=== PATIENT | female | born 1980 | race Caucasian/White ===

== ENCOUNTER → 2016-12-02 | Outpatient (CLI) | payer BC ==
--- NOTE | 2016-12-05 09:18 | MM ---
Reason for exam: screening (asymptomatic). Last mammogram was performed 2 years and 10 months ago. History: Family history of breast cancer in grandmother at age 70. Physical Findings: A clinical breast exam by your physician is recommended on an annual basis and results should be correlated with mammographic findings. MG Screening Mammo w CAD Bilateral CC and MLO view(s) were taken. Prior study comparison: February 06, 2014, left diagnostic mammogram w/CAD. June 21, 2012, CAD bilateral diagnostic mammogram. The breast tissue is heterogeneously dense. This may lower the sensitivity of mammography. There is no discrete abnormality. No significant changes when compared with prior studies. ASSESSMENT: Negative, BI-RAD 1 RECOMMENDATION: Routine screening mammogram of both breasts at age 41.
== END | disposition home or self-care (01) ==
LOC: RADMAMWWP 13:37
PROVIDERS: ATTEND Obstetrics & Gynecology
DX: Z12.31 Encounter for screening mammogram for malignant neoplasm of breast (principal)

== ENCOUNTER 2019-01-31 12:20 | Day surgery (SDC) | payer BC ==
[2019-01-25 10:00] VITALS: BMI 24.9
--- NOTE | 2019-01-31 08:06 | P.GSHP ---
History of Present Illness H&P Date: 01/31/19 CHIEF COMPLAINT: Inguinal hernia, right. HISTORY OF PRESENT ILLNESS: The patient is a 38-year-old female who presents with a history of swelling and pain along the right groin. She's noted increased swelling including pain of the area. Now she presents for repair of her inguinal hernia. PAST MEDICAL HISTORY: Please see list. PAST SURGICAL HISTORY: Please see list. MEDICATIONS: Please see list. ALLERGIES: Please see list. SOCIAL HISTORY: No illicit drug use FAMILY HISTORY: No reports of Crohn disease or ulcerative colitis. REVIEW OF ORGAN SYSTEMS: CONSTITUTIONAL: No reports of fevers or chills. No reports of weight loss despite prior attempts. GI: Denies any blood in stools or constipation. PHYSICAL EXAM: VITAL SIGNS: Stable GENERAL: Well-developed pleasant female in no acute distress. HEENT: No scleral icterus. Extraocular movements grossly intact. Moist buccal mucosa. NECK: Supple without lymphadenopathy. CHEST: Unlabored respirations. Equal bilateral excursions. CARDIOVASCULAR: Regular rate and rhythm. Distal 2+ pulses. ABDOMEN: Soft, nondistended. No peritoneal signs. Palpable defect of the right groin. MUSCULOSKELETAL: No clubbing, cyanosis, or edema. ASSESSMENT: 1. Inguinal hernia, right initial and symptomatic. PLAN: 1. Recommend proceeding with a diagnostic laparoscopy with inguinal repair with mesh with possible bilateral approach. 2. Benefits and risks of surgical intervention was discussed including possibility of open technique. 3. May need overnight observation pending anticipated postoperative pain. 4. DVT prophylaxis. 5. Antibiotic prophylaxis. Past Medical History Past Medical History: No Reported History Additional Past Medical History / Comment(s): RIGHT INGUINAL HERNIA History of Any Multi-Drug Resistant Organisms: None Reported Past Surgical History: Appendectomy, Cholecystectomy, Tonsillectomy Past Anesthesia/Blood Transfusion Reactions: Postoperative Nausea & Vomiting (PONV) Smoking Status: Never smoker - Past Family History Mother Family Medical History: No Reported History Medications and Allergies Home Medications Medication Instructions Recorded Confirmed Type ALPRAZolam [Xanax] 0.25 mg PO BID PRN 01/25/19 01/25/19 History Desvenlafaxine Succinate [Pristiq] 100 mg PO QAM 01/25/19 01/25/19 History Allergies Allergy/AdvReac Type Severity Reaction Status Date / Time No Known Allergies Allergy Verified 01/25/19 09:55
[~2019-01-31 12:20] MED LIST: DEXAMETHASONE SOD PHOSPHATE 10 MG/ML 1 ML VIAL IV ONE; HEPARIN SODIUM,PORCINE 5,000 UNIT/ML 1 ML VIAL SQ ONE; HYDROmorphone 0.5 MG/0.5 ML SYRINGE IVP PRN; LACTATED RINGERS 1,000 ML IV SCH; LIDOCAINE 1% 20 ML VIAL (10MG/ML) FOR IV START INTRADERMA PRN; MIDAZOLAM 2 MG/2 ML VIAL IV PRN; SCOPOLAMINE 1.5MG/72HR PATCH TRANSDERM ONE; ceFAZolin IN SWFI 2 GM/20 ML SYRINGE IVP ONE
[2019-01-31] MEDS: ONDANSETRON 4 MG/2 ML VIAL IVP ONE ×2 (14:11→16:30)
[2019-01-31] MEDS ORDERED: PROPOFOL 10 MG/ML 20 ML VIAL IV ONE (15:12)
[2019-01-31] MEDS ORDERED: PHENYLEPHRINE-0.9% NACL SYG 1 MG/10 ML SYRINGE ONE (15:12)
[2019-01-31] MEDS ORDERED: NEOSTIGMINE 1 MG/ML 10 ML VIAL ONE (15:12)
[2019-01-31] MEDS ORDERED: GLYCOPYRROLATE 0.2 MG/ML 2 ML VIAL ONE (15:12)
[2019-01-31] MEDS ORDERED: MIDAZOLAM 2 MG/2 ML VIAL ONE (15:12)
[2019-01-31] MEDS ORDERED: fentaNYL (PF) 50 MCG/ML 2 ML AMP ONE (15:12)
[2019-01-31] MEDS ORDERED: ROCURONIUM BROMIDE 10 MG/ML 10 ML VIAL IV ONE (15:12)
[2019-01-31] MEDS ORDERED: LIDOCAINE 1% INJ 10MG/ML (20 ML MDV) ONE (15:12)
[2019-01-31] MEDS ORDERED: BUPIVACAINE-EPI 0.5%-1:200,000 10 ML VIAL SQ ONE (15:47)
[2019-01-31] MEDS ORDERED: LACTATED RINGERS 1,000 ML IV ONE (16:14)
[2019-01-31 16:34] VITALS: TEMP 99.6
[2019-01-31] MEDS: MEPERIDINE 50 MG/ML SYRINGE IVP ONE ×4 (16:38→17:00)
[2019-01-31] MEDS: diphenhydrAMINE 50 MG/ML 1 ML VIAL IVP ONE ×2 (16:40→17:00)
[2019-01-31 16:44] VITALS: RESP 16
--- NOTE | 2019-01-31 16:59 | P.OP ---
Date of Procedure: 01/31/19 Description of Procedure: SURGEON: ESTEPHANIE BRODERICK MD PREOPERATIVE DIAGNOSES: 1. Right lower quadrant pain 2. Prior history of appendectomy 3. History right inguinal hernia 4. Lower abdominal pain 5. Generalized anxiety disorder 6. Depressive disorder, chronic POSTOPERATIVE DIAGNOSES: 1. Right lower quadrant pain 2. Prior history of appendectomy 3. History right inguinal hernia 4. Lower abdominal pain 5. Generalized anxiety disorder 6. Depressive disorder, chronic 7. Peritoneal adhesions, right lower quadrant pain OPERATION: 1. Robotic-assisted da Khoi Xi laparoscopic lysis of adhesions 2. Robotic-assisted da Khoi Xi laparoscopic reduction of sigmoid volvulus COMPLICATIONS: None. Anesthesia: GETA, local Estimated Blood Loss (ml): 5 Pathology: none sent Condition: stable Disposition: floor Operative Findings: 1. No bilateral inguinal hernia or defect 2. Moderate peritoneal adhesions along right lower quadrant with lead point to right groin 3. Highly redundant sigmoid colon with active sigmoid volvulus reduced 4. Bilateral ovaries unremarkable 5. Fallopian tubes right unremarkable with dilated veins of the left fallopian otherwise within normal limits. 6. No findings of endometrial deposits along colon, small bowel, ovaries, fallopian tube, uterus, pouch of Albert, and bladder INDICATIONS: The patient is a 38-year-old female who presents with lower abdominal pain, right greater than left. She reports possible history of right inguinal hernia. Surgical intervention of diagnostic laparoscopy with right inguinal hernia repair with mesh was described. Informed consent was obtained. Robotic assisted laparoscopic approach was described. Benefits and risks of the procedure including but not limited to bleeding, infection, injury to the small bowel was described. Informed consent was obtained. DESCRIPTION OF PROCEDURE: Patient was brought to the operating room, placed in supine position. After general induction, the abdomen had been prepped and draped in standard sterile fashion. The robotic da Khoi XI system was primed. After a timeout protocol was performed, the patient had been prepped and draped in standard sterile fashion. A 5 mm 0 degrees laparoscopic trocar entry was performed along the left upper quadrant. The abdomen was insufflated to 15 mmHg pressure which she tolerated well. Diagnostic laparoscopy demonstrated localized adhesions of the omentum to the right lower quadrant abdominal wall. No defects were found along the bilateral groin. The sigmoid colon was in partial volvulus deep into the pelvis. Next, three 8 mm robotic ports were placed along the upper abdomen after exchanging the 5-mm port along the left upper quadrant. Please note that the ports were placed at least 8 cm away from each other. The robot was docked along the left lateral abdomen. The patient was repositioned in Trendelenburg position of 10-degrees. Instruments were interchanged using graspers and scissors. I had sat at the console. Attention was brought to the right lower quadrant where greater omentum adhesion to the right lower abdominal wall was found including a lead point pulling omentum into the pelvis near the right groin. Lysis of adhesions was performed using blunt and sharp dissection with scissors and cautery. Carefully the adhesions were taken down without injury to the small bowel. The cecum and terminal ileum were within normal limits after adhesionolysis was carried out to the right lateral abdominal wall. The lead point was freed from the right pelvis. Next attention was brought to the sigmoid colon that was in active volvulus, twisted into the deep pelvis with free fluid identified. The sigmoid colon volvulus was reduced and untwisted and viable. No endometrial deposits were found. The right ovary was without active cysts. The right fallopian tube was unremarkable for varicosities. The Pouch of Albert was assesed with minimal physiological clear free fluid found. No dark spots or endometrial deposits were found. Minimal dilation of the fallopian tube veins along the left was found, otherwise the left ovary was within normal limits. Hemostasis was excellent. The robot was undocked. All pneumoperitoneum and instruments were evacuated from the abdominal cavity. T he incisions were reapproximated using 4-0 Monocryl in an interrupted subcuticular fashion. Please note along the trocar sites, local anesthetic was placed as a field block prior to insertion of all instruments. The skin was cleansed. Liquid glue was applied to the skin. At the end of the procedure needle, sponge, and instrument count had been verified correct by the surgical services director. The patient was transferred to postanesthesia care unit in stable condition. Intraoperative images including findings were described to the patients family with copies. Plan - Discharge Summary Discharge Rx Participant: Yes New Discharge Prescriptions: New Ibuprofen [Motrin] 600 mg PO Q8HR PRN #30 tab PRN Reason: pain HYDROcodone/APAP 5-325MG [Bourg 5-325] 1 tab PO Q6HR PRN 3 Days #5 tab PRN Reason: Pain No Action ALPRAZolam [Xanax] 0.25 mg PO BID PRN PRN Reason: Anxiety Desvenlafaxine Succinate [Pristiq] 100 mg PO QAM Discharge Medication List ALPRAZolam [Xanax] 0.25 mg PO BID PRN 01/25/19 [History] Desvenlafaxine Succinate [Pristiq] 100 mg PO QAM 01/25/19 [History] HYDROcodone/APAP 5-325MG [Bourg 5-325] 1 tab PO Q6HR PRN 3 Days #5 tab 01/31/19 [Rx] Ibuprofen [Motrin] 600 mg PO Q8HR PRN #30 tab 01/31/19 [Rx] Follow up Appointment(s)/Referral(s): Estephanie Broderick MD [STAFF PHYSICIAN] - 02/05/19 Patient Instructions/Handouts: Lysis of Abdominal Adhesions (IP) Activity/Diet/Wound Care/Special Instructions: May shower. No bathtub soaks. No driving while on narcotics. Discharge Disposition: HOME SELF-CARE
[2019-01-31] MEDS ORDERED: DEXAMETHASONE SOD PHOSPHATE 10 MG/ML 1 ML VIAL IV ONE (17:05)
[2019-01-31] MEDS ORDERED: METOCLOPRAMIDE 5 MG/ML 2 ML VIAL IVP STA (17:50)
[2019-01-31] MEDS ORDERED: KETOROLAC 30 MG/ML 1 ML VIAL IM STA (17:50)
[2019-01-31] MEDS: MAGNESIUM SULFATE-D5W PMX 1 GM in DEXTROSE/WATER 1 100ML.BAG IVPB ONE ×2 (18:56→20:00)
[2019-01-31 19:49] VITALS: BP 95/59; PULSE 79
== END 2019-01-31 20:05 | disposition home or self-care (01) ==
LOC: OR 12:20
PROVIDERS: ATTEND Surgery Plastic and Reconstructive Surgery
DX: K56.2 Volvulus (principal); K66.0 Peritoneal adhesions (postprocedural) (postinfection); Q43.8 Other specified congenital malformations of intestine; F41.1 Generalized anxiety disorder; F32.9 Major depressive disorder, single episode, unspecified; K21.9 Gastro-esophageal reflux disease without esophagitis; Z79.899 Other long term (current) drug therapy; Z90.49 Acquired absence of other specified parts of digestive tract
CPT/HCPCS: 44238; 49329; 81025; 83735; J2250; J1200; J1644; J1100; J2710; J2765; J2175; J2405; J2001; J3010; J1885; J3475; J2370; J2704; J0690

== ENCOUNTER → 2019-12-27 | Outpatient (CLI) | payer BC ==
--- NOTE | 2019-12-27 11:11 | MM ---
Reason for exam: clinical finding. Last mammogram was performed 3 years and 1 month ago. History: Family history of breast cancer in grandmother at age 70. Physical Findings: Nurse Summary: 1cm nodule in the right breast at 11 o'clock, a 1cm nodule in the left beast at 12 o'clock and 1 o'clock (nurse mj). MG Diagnostic Mammo w CAD JIMBO Bilateral CC and MLO view(s) were taken. Prior study comparison: December 02, 2016, bilateral MG screening mammo w CAD. February 06, 2014, left diagnostic mammogram w/CAD. The breast tissue is extremely dense which could obscure a lesion on mammography. Focal asymmetries are seen bilaterally in the upper outer quadants deep to the palpable BB markers, two on the right and two on the left as well as in the bilateral axilla. These results were verbally communicated with the patient and result sheet given to the patient on 12/27/19. ASSESSMENT: Incomplete: need additional imaging evaluation, BI-RAD 0 RECOMMENDATION: Ultrasound of both breasts. (bilateral palpable)
--- NOTE | 2019-12-27 11:12 | USB ---
Reason for exam: additional evaluation requested from abnormal screening. History: Family history of breast cancer in grandmother at age 70. US Breast Limited BILAT Right limited breast ultrasound including focal area of concern, retroareolar and axilla demonstrates a 1.1 x 1.0 x 0.4cm oval lymph node at the axilla BB. Left limited breast ultrasound including focal area of concern, retroareolar and axilla demonstrates no cystic or solid lesion seen. Dense tissue throughout. These results were verbally communicated with the patient and result sheet given to the patient on 12/27/19. ASSESSMENT: Benign, BI-RAD 2 RECOMMENDATION: Routine screening mammogram of both breasts at age 41.
== END | disposition home or self-care (01) ==
LOC: RADMAMWWP 06:49
PROVIDERS: ATTEND Obstetrics & Gynecology
DX: R92.8 Other abnormal and inconclusive findings on diagnostic imaging of breast (principal); N63.0 Unspecified lump in unspecified breast; N60.09 Solitary cyst of unspecified breast
CPT/HCPCS: 77066

== ENCOUNTER → 2021-05-17 | Outpatient (CLI) | payer BC ==
--- NOTE | 2021-05-19 08:16 | MM ---
Reason for exam: screening (asymptomatic). Last mammogram was performed 1 year and 5 months ago. History: Family history of breast cancer in grandmother at age 70. Benign excisional biopsy of the left breast, 2011. Physical Findings: A clinical breast exam by your physician is recommended on an annual basis and results should be correlated with mammographic findings. MG Screening Mammo w CAD Bilateral CC and MLO view(s) were taken. Prior study comparison: December 27, 2019, bilateral MG diagnostic mammo w CAD [facility]IM[facility]. December 02, 2016, bilateral MG screening mammo w CAD. The breast tissue is extremely dense which could obscure a lesion on mammography. No significant changes when compared with prior studies. ASSESSMENT: Benign, BI-RAD 2 RECOMMENDATION: Routine screening mammogram of both breasts in 1 year.
== END | disposition home or self-care (01) ==
LOC: RADMAMWWP 08:46
PROVIDERS: ATTEND Family Medicine
DX: Z12.31 Encounter for screening mammogram for malignant neoplasm of breast (principal); Z80.3 Family history of malignant neoplasm of breast
CPT/HCPCS: 77067

== ENCOUNTER → 2022-05-31 | Outpatient (CLI) | payer BC ==
--- NOTE | 2022-06-01 10:10 | MM ---
Reason for Exam: Screening (asymptomatic). Last mammogram was performed 1 year(s) and 1 month(s) ago. Patient History: Menarche at age 14. First Full-Term at age 29. 2011, Benign Excisional Biopsy on the left side. Maternal grandmother had breast cancer, age 70. Last menstrual period: 05/24/2022 Risk Values: Velia 5 year model risk: 1.0%. NCI Lifetime model risk: 13.5%. Prior Study Comparison: 12/02/2016 Bilateral Screening Mammogram, [facility]. 12/27/2019 Bilateral Diagnostic Mammogram, [facility]. 05/17/2021 Bilateral Screening Mammogram, [facility]. Tissue Density: The breast tissue is heterogeneously dense. This may lower the sensitivity of mammography. Findings: Analyzed By CAD. There is a subtle focal asymmetry with indistinct and spiculated margins at the mid middle 12:00 to 1:00 position left breast. This may be a change. Summation density potentially could be within the differential. Additional workup is recommended. Otherwise, No suspicious groups of microcalcifications, spiculated or lobular masses, architectural distortion or other secondary signs of malignancy are mammographically apparent. Overall Assessment: Incomplete: need additional imaging evaluation, BI-RAD 0 Management: Diagnostic Mammogram of the left breast. A negative mammogram report should not preclude additional follow up of suspicious palpable abnormalities. Patient should continue monthly self breast exam. A clinical breast exam by your physician is recommended on an annual basis and results should be correlated with mammographic findings. Electronically signed and approved by: Michael Dimas D.O. Radiologis
== END | disposition home or self-care (01) ==
LOC: RADMAMWWP 13:24
PROVIDERS: ATTEND Obstetrics & Gynecology
DX: Z12.31 Encounter for screening mammogram for malignant neoplasm of breast (principal); Z80.3 Family history of malignant neoplasm of breast
CPT/HCPCS: 77063; 77067

== ENCOUNTER → 2022-06-02 | Outpatient (CLI) | payer BC ==
--- NOTE | 2022-06-02 08:40 | MM ---
Reason for Exam: Additional evaluation requested from abnormal screening. Last screening mammogram was performed less than 1 month ago. Patient History: Menarche at age 14. First Full-Term at age 29. 2011, Benign Excisional Biopsy on the left side. Maternal grandmother had breast cancer, age 70. Last menstrual period: 05/24/2022 Risk Values: Velia 5 year model risk: 1.0%. NCI Lifetime model risk: 13.5%. Prior Study Comparison: 12/27/2019 Bilateral Diagnostic Mammogram, [facility]. 05/17/2021 Bilateral Screening Mammogram, [facility]. 05/31/2022 Bilateral MG 3D screening mammo w/cad, [facility]. Tissue Density: Left: The breast tissue is heterogeneously dense. This may lower the sensitivity of mammography. Findings: Analyzed By CAD. The area of central outer asymmetric density at a posterior depth disperses on additional views. Findings compatible with superimposition shadow. No suspicious persisting abnormality seen. Overall Assessment: Benign, BI-RAD 2 Management: Screening Mammogram of both breasts in 1 year. 1. Patient should continue monthly self breast exams. 2. A clinical breast exam by your physician is recommended on an annual basis. 3. This exam should not preclude additional follow-up of suspicious palpable abnormalities. Results were given to the patient verbally at the time of exam. Electronically signed and approved by: Mechelle Barron M.D. Radiologist
== END | disposition home or self-care (01) ==
LOC: RADMAMWWP 07:57
PROVIDERS: ATTEND Obstetrics & Gynecology
DX: R92.8 Other abnormal and inconclusive findings on diagnostic imaging of breast (principal); Z80.3 Family history of malignant neoplasm of breast
CPT/HCPCS: 77061; 77065

== ENCOUNTER 2023-04-19 20:54 | Emergency (ER) | payer BC ==
--- NOTE | 2023-04-19 22:21 | ED ---
Abdominal Pain HPI - General Chief Complaint: Abdominal Pain Stated Complaint: ABD Pain Time Seen by Provider: 04/19/23 22:10 Source: patient, family (), RN notes reviewed, old records reviewed Mode of arrival: ambulatory Limitations: no limitations - History of Present Illness Initial Comments: 42-year-old female presents to the emergency room with complaints of sudden onset of sharp burning right lower quadrant pain that started around 8:15 t onight. Lasted about 15 minutes. Resolved with Motrin. She states she's never had such sharp pain in the past. She denies any back pain or dysuria. No vaginal bleeding. States due for her menses next week. States her had a vasectomy so no chance of . Patient states she does have a history of cholecystectomy and appendectomy. She did have scar tissue removed by Dr. Gao 8 years ago. Complaint: abdominal pain -: minutes(s) (15) Location: RLQ (groin) Radiation: none Severity scale (1-10): 2 Quality: sharp, burning Consistency: now resolved Improves With: other (motrin) Associated Symptoms: denies other symptoms Treatments Prior to Arrival: NSAIDs (motrin) - Related Data Home Medications Medication Instructions Recorded Confirmed ALPRAZolam [Xanax] 0.25 mg PO BID PRN 01/25/19 01/31/19 Desvenlafaxine Succinate [Pristiq] 100 mg PO QAM 01/25/19 01/31/19 Previous Rx's Medication Instructions Recorded HYDROcodone/APAP 5-325MG [[place] 1 tab PO Q6HR PRN 3 Days #5 tab 01/31/19 5-325] Ibuprofen [Motrin] 600 mg PO Q8HR PRN #30 tab 01/31/19 Allergies Allergy/AdvReac Type Severity Reaction Status Date / Time No Known Allergies Allergy Verified 04/19/23 21:12 Review of Systems ROS Statement: Those systems with pertinent positive or pertinent negative responses have been documented in the HPI. ROS Other: All systems not noted in ROS Statement are negative. Past Medical History Past Medical History: No Reported History Additional Past Medical History / Comment(s): RIGHT INGUINAL HERNIA History of Any Multi-Drug Resistant Organisms: None Reported Past Surgical History: Appendectomy, Cholecystectomy, Tonsillectomy Past Anesthesia/Blood Transfusion Reactions: Postoperative Nausea & Vomiting (PONV) Past Psychological History: Anxiety Smoking Status: Never smoker Past Alcohol Use History: Occasional Past Drug Use History: None Reported - Past Family History Mother Family Medical History: No Reported History General Exam Limitations: no limitations General appearance: alert, in no apparent distress Head exam: Present: atraumatic Eye exam: Present: normal appearance. Absent: scleral icterus, conjunctival injection, periorbital swelling Neck exam: Present: full ROM. Absent: meningismus Respiratory exam: Absent: respiratory distress, accessory muscle use Cardiovascular Exam: Present: regular rate GI/Abdominal exam: Present: soft, tenderness (right groin). Absent: distended, guarding, rebound, rigid Extremities exam: Present: normal capillary refill. Absent: pedal edema Back exam: Absent: tenderness, CVA tenderness (R), CVA tenderness (L), paraspinal tenderness, vertebral tenderness Neurological exam: Present: alert, oriented X3, normal gait Psychiatric exam: Present: normal affect, normal mood Skin exam: Present: warm, dry, normal color. Absent: cyanosis, diaphoretic, petechiae, pallor Course Vital Signs 04/19/23 04/19/23 21:10 23:50 Temperature 97.6 F 98.6 F Pulse Rate 84 72 Respiratory 20 17 Rate Blood Pressure 108/70 104/68 O2 Sat by Pulse 98 98 Oximetry Medical Decision Making - Medical Decision Making Was pt. sent in by a medical professional or institution (ELLIOTT Pepe, SAP TECHNICAL ARCHITECT, urgent care, hospital, or shelter...) When possible be specific @ -No Did you speak to anyone other than the patient for history (EMS, parent, family, police, friend...)? What history was obtained from this source @ -No Did you review nursing and triage notes (agree or disagree)? Why? @ -I reviewed and agree with nursing and triage notes Were old charts reviewed (outside hosp., previous admission, EMS record, old EKG, old radiological studies, urgent care reports/EKG's, shelter records)? Report findings @ -No old charts were reviewed Differential Diagnosis (chest pain, altered mental status, abdominal pain women, abdominal pain men, vaginal bleeding, weakness, fever, dyspnea, syncope, headache, dizziness, GI bleed, back pain, seizure, CVA, palpatations, mental health, musculoskeletal)? @ -Ectopic , PID, sexually transmitted infection, kidney stone, appendicitis, cystitis, gastroenteritis, this is not an all inclusive list EKG interpreted by me (3pts min.). @ -n/a X-rays interpreted by me (1pt min.). @ -None done CT interpreted by me (1pt min.). @ -None done U/S interpreted by me (1pt. min.). @ -no What testing was considered but not performed or refused? (CT, X-rays, U/S, labs)? Why? @ -None What meds were considered but not given or refused? Why? @ -Toradol was offered and declined Did you discuss the management of the patient with other professionals (professionals i.e. Dr., PA, SAP TECHNICAL ARCHITECT, lab, RT, psych nurse, clinical social work aide, water supply engineer, teacher, community relations officer, home health care case manager)? Give summary @ -No Was smoking cessation discussed for >3mins.? @ -No Was critical care preformed (if so, how long)? @ -No Were there social determinants of health that impacted care today? How? (Homelessness, low income, unemployed, alcoholism, drug addiction, transportation, low edu. Level, literacy, decrease access to med. care, penitentiary, rehab)? @ -No Was there de-escalation of care discussed even if they declined (Discuss DNR or withdrawal of care, Hospice)? DNR status @ -No What co-morbidities impacted this encounter? (DM, HTN, Smoking, COPD, CAD, Cancer, CVA, ARF, Chemo, Hep., AIDS, mental health diagnosis, sleep apnea, morbid obesity)? @ History of appendectomy, cholecystectomy, anxiety. Was patient admitted / discharged? Hospital course, mention meds given and route, prescriptions, significant lab abnormalities, going to OR and other pertinent info. @ -Discharged 42-year-old female presents to the emergency room with complaints of sudden onset of sharp burning right lower quadrant pain that started around 8:15 tonight. Lasted about 15 minutes. Resolved with Motrin. She states she's never had such sharp pain in the past. She denies any back pain or dysuria. No vaginal bleeding. States due for her menses next week. States her had a vasectomy so no chance of . Patient states she does have a history of cholecystectomy and appendectomy. She did have scar tissue removed by Dr. Gao 8 years ago. Denies history of right inguinal hernia. Patient was offered Toradol and declined. Labs show no evidence of leukocytosis. Electrolytes are unremarkable. Urinalysis is negative for infection. Ultrasound transvaginal shows no evidence for acute pelvic process. Endometrium within normal limits for thickness. Appropriate arterial and venous proctoscopy waveforms to the ovaries. Dominant follicle right ovary measuring 0.8 cm. This is likely the source of the patients pain. Patient will be discharged home directed to take Tylenol Motrin for pain and uses heat. Follow-up with her primary care doctor or EMBEDDED SYSTEMS DEVELOPER. Return to the emergency room with any new or concerning symptoms. She is agreeable to this plan of care. Case discussed with Dr. Kaur Undiagnosed new problem with uncertain prognosis? @ -No Drug Therapy requiring intensive monitoring for toxicity (Heparin, Nitro, Insulin, Cardizem)? @ -No Were any procedures done? @ -No Diagnosis/symptom? @ -Pelvic pain, mittelschmerz Acute, or Chronic, or Acute on Chronic? @ -Acute Uncomplicated (without systemic symptoms) or Complicated (systemic symptoms)? @ -Uncomplicated Side effects of treatment? @ -No Exacerbation, Progression, or Severe Exacerbation? @ -No Poses a threat to life or bodily function? How? (Chest pain, USA, VT, pneumonia, PE, COPD, DKA, ARF, appy, cholecystitis, CVA, Diverticulitis, Homicidal, Suic idal, threat to staff... and all critical care pts) @ -No - Lab Data Result diagrams: 04/19/23 22:25 04/19/23 23:30 Lab Results 04/19/23 04/19/23 04/19/23 Range/Units 22:25 22:25 23:30 WBC 10.1 (3.8-10.6) k/uL RBC 4.05 (3.80-5.40) m/uL Hgb 13.1 (11.4-16.0) gm/dL Hct 40.0 (34.0-46.0) % MCV 98.7 (80.0-100.0) fL MCH 32.3 (25.0-35.0) pg MCHC 32.7 (31.0-37.0) g/dL RDW 12.9 (11.5-15.5) % Plt Count 251 (150-450) k/uL MPV 8.3 Neutrophils % 57 % Lymphocytes % 28 % Monocytes % 10 % Eosinophils % 2 % Basophils % 1 % Neutrophils # 5.8 (1.3-7.7) k/uL Lymphocytes # 2.8 (1.0-4.8) k/uL Monocytes # 1.0 (0-1.0) k/uL Eosinophils # 0.2 (0-0.7) k/uL Basophils # 0.1 (0-0.2) k/uL Sodium 136 L (137-145) mmol/L Potassium 4.5 (3.5-5.1) mmol/L Chloride 105 (98-107) mmol/L Carbon Dioxide 24 (22-30) mmol/L Anion Gap 7 mmol/L BUN 17 (7-17) mg/dL Creatinine 0.76 (0.52-1.04) mg/dL Est GFR (CKD-EPI)AfAm >90 (>60 ml/min/1.73 sqM) Est GFR (CKD-EPI)NonAf >90 (>60 ml/min/1.73 sqM) Glucose 96 (74-99) mg/dL Calcium 9.4 (8.4-10.2) mg/dL Total Bilirubin 0.4 (0.2-1.3) mg/dL AST 27 (14-36) U/L ALT 20 (4-34) U/L Alkaline Phosphatase 48 (38-126) U/L Total Protein 7.0 (6.3-8.2) g/dL Albumin 4.2 (3.5-5.0) g/dL Urine Color Yellow Urine Appearance Clear (Clear) Urine pH 6.0 (5.0-8.0) Ur Specific [place] 1.022 (1.001-1.035) Urine Protein Negative (Negative) Urine Glucose (UA) Negative (Negative) Urine Ketones Negative (Negative) Urine Blood Negative (Negative) Urine Nitrite Negative (Negative) Urine Bilirubin Negative (Negative) Urine Urobilinogen <2.0 (<2.0) mg/dL Ur Leukocyte Esterase Trace H (Negative) Urine RBC <1 (0-5) /hpf Urine WBC 1 (0-5) /hpf Ur Squamous Epith Cells 2 (0-4) /hpf Urine Bacteria Rare H (None) /hpf Urine Mucus Rare H (None) /hpf Disposition Clinical Impression: Follicle cyst, Mittelschmerz Disposition: HOME SELF-CARE Condition: Good Instructions (If sedation given, give patient instructions): Ovarian Cyst (ED) Additional Instructions: On ultrasound there shows a dominant 0.8 cm follicle right ovary. This may be the cause of your lower right sided abdominal pain. Tylenol and Motrin as needed for any pain or discomfort. You can also use heat. Follow-up with the EMBEDDED SYSTEMS DEVELOPER as needed. Return to emergency room if any new or concerning symptoms. Is patient prescribed a controlled substance at d/c from ED?: No Referrals: Keny Castillo MD [Primary Care Provider] - 1-2 days Time of Disposition: 23:55
[2023-04-19 22:35] LABS: Appearance,Urine Clear (Clear); Bacteria,Urine Rare /hpf; Bilirubin,Urine Negative (Negative); Blood,Urine Negative (Negative); Color,Urine Yellow; Glucose,Urine (UA) Negative (Negative); Ketones,Urine Negative (Negative); Leukocyte Esterase,Urine Trace (Negative); Mucus,Urine Rare /hpf; Nitrite,Urine Negative (Negative); Protein,Urine Negative (Negative); RBC,Urine <1 /hpf (0-5); Specific Gravity,Urine 1.022 (1.001-1.035); Squamous Epithelial Cell,Urine 2 /hpf (0-4); Urobilinogen,Urine <2.0 mg/dL (<2.0); WBC,Urine 1 /hpf (0-5)
[2023-04-19 22:37] LABS: Basophils # (A) 0.1 k/uL (0-0.2); Basophils % (A) 1 %; Eosinophils # (A) 0.2 k/uL (0-0.7); Eosinophils % (A) 2 %; HGB 13.1 gm/dL (11.4-16.0); Lymphocytes # (A) 2.8 k/uL (1.0-4.8); Lymphocytes % (A) 28 %; MCH 32.3 pg (25.0-35.0); MCHC 32.7 g/dL (31.0-37.0); MCV 98.7 fL (80.0-100.0); Mean Platelet Volume 8.3; Monocytes % (A) 10 %; Neutrophils # (A) 5.8 k/uL (1.3-7.7); Neutrophils % (A) 57 %; Platelet Count 251 k/uL (150-450); RBC 4.05 m/uL (3.80-5.40); RDW 12.9 % (11.5-15.5); WBC 10.1 k/uL (3.8-10.6)
--- NOTE | 2023-04-19 23:09 | US ---
EXAMINATION TYPE: US transvaginal DATE OF EXAM: 04/19/2023 COMPARISON: NONE CLINICAL INDICATION: Female, 42 years old with history of right lower quad pain; pelvic pain x 3 hour s. TECHNIQUE: Transvaginal (TV). Date of LMP: 03/23/23 EXAM MEASUREMENTS: Uterus: 8.3 x 4.8 x 4.0 cm Endometrial Stripe: 1.2 cm Right Ovary: 2.8 x 1.8 x 1.7 cm Left Ovary: 3.4 x 2.1 x 1.9 cm 1. Uterus: Anteverted wnl 2. Endometrium: wnl 3. Right Ovary: Dominant follicle seen measuring 0.8cm 4. Left Ovary: wnl Spectral, color and waveform doppler imaging shows good arterial and venous flow within the ovaries ; there is no evidence for ovarian torsion. 5. Bilateral Adnexa: wnl 6. Posterior cul-de-sac: wnl IMPRESSION: 1. No evidence for acute pelvic process. 2. Endometrium within normal limits for thickness. 3. Appropriate arterial and venous spectral waveforms to the ovaries. 4.
[2023-04-19] MEDS ORDERED: KETOROLAC 15 MG/ML 1 ML VIAL IVP STA (23:14)
[2023-04-19 23:50] VITALS: BP 104/68; PULSE 72; RESP 17; TEMP 98.6
[2023-04-20 00:13] LABS: ALT 20 U/L (4-34); AST 27 U/L (14-36); African American GFR (CKD) >90 (>60 ml/min/1.73 sqM); Albumin 4.2 g/dL (3.5-5.0); Alkaline Phosphatase 48 U/L (38-126); Anion Gap 7 mmol/L; Blood Urea Nitrogen 17 mg/dL (7-17); Calcium 9.4 mg/dL (8.4-10.2); Carbon Dioxide 24 mmol/L (22-30); Chloride 105 mmol/L (98-107); Glucose 96 mg/dL (74-99); Non-African American GFR(CKD) >90 (>60 ml/min/1.73 sqM); Potassium 4.5 mmol/L (3.5-5.1); Sodium 136 mmol/L (137-145); Total Bilirubin 0.4 mg/dL (0.2-1.3)
== END 2023-04-20 00:07 | disposition home or self-care (01) ==
LOC: EC 20:54
DX: N83.01 Follicular cyst of right ovary (principal); N94.0 Mittelschmerz; F41.9 Anxiety disorder, unspecified; Z79.899 Other long term (current) drug therapy
CPT/HCPCS: 36415; 76830; 80053; 81001; 85025; 93975; 99284

== ENCOUNTER → 2024-03-20 | Outpatient (CLI) | payer BC ==
--- NOTE | 2024-03-20 09:54 | P.GSCN ---
History of Present Illness Consult date: 03/20/24 Reason for Consult: mass left breast Requesting physician: Shanda Davis History of present illness: Armin is a 43 year old female with an abnormal left breast mammogram. She is complaining of a lump in her left breast for about 1 week. Her last mammogram was in 05-31-22 diagnostic left breast mammogram in 06-02-2022. This was felt to be BI-RADS 2 and follow-up in 1 year was recommended. Not complaining of any nipple discharge or skin changes. She had a left breast biopsy in 2010 which was benign. Not complaining of any recent trauma or infection of the breast. Caffeine: 2 cups/day nicotine: none chocolate: none BCP: about 2 years hormones: one time hormones replacement via Dr. Davis, several years ago Hormone History: menarche: 13 , breast fed no, age at first : 30 periods regular, 2 weeks prior not feel well, last about 3 days LMP: 3 weeks ago Family History: maternal grandmother: breast cancer maternal grandfather: lungs smoker Surgical History: appy gallbladder left breast biopsy tonsil Medical History: Patient has had COVID twice, she did not take the COVID-vaccine Social History: Nicotine: None alcohol: Occasional Drugs: Negative Review of Systems - EENT Eyes: denies blurred vision Ears: deny: decreased hearing, tinnitus Ears, nose, mouth and throat: Denies dysphagia - Breasts bilateral: as per HPI - Cardiovascular Denies chest pain, Denies shortness of breath - Respiratory Denies cough, Denies 7 - Gastrointestinal Reports as per HPI - Genitourinary Genitourinary: Reports as per HPI Menstruation: Reports period normal - Musculoskeletal Reports as per HPI - Integumentary Reports as per HPI - Neurological Reports as per HPI - Psychiatric Reports anxiety - Endocrine Reports as per HPI - Hematologic/Lymphatic Reports as per HPI - Allergic/Immunologic Reports seasonal allergies Past Medical History Past Medical History: No Reported History Additional Past Medical History / Comment(s): RIGHT INGUINAL HERNIA History of Any Multi-Drug Resistant Organisms: None Reported Past Surgical History: Appendectomy, Cholecystectomy, Tonsillectomy Past Anesthesia/Blood Transfusion Reactions: Postoperative Nausea & Vomiting (PONV) Past Psychological History: Anxiety Smoking Status: Never smoker Past Alcohol Use History: Occasional Past Drug Use History: None Reported - Past Family History Mother Family Medical History: No Reported History Medications and Allergies Home Medications Medication Instructions Recorded Confirmed Type ALPRAZolam [Xanax] 0.25 mg PO BID PRN 01/25/19 01/31/19 History Desvenlafaxine Succinate [Pristiq] 100 mg PO QAM 01/25/19 01/31/19 History HYDROcodone/APAP 5-325MG [[place] 1 tab PO Q6HR PRN 3 Days #5 tab 01/31/19 Rx 5-325] Ibuprofen [Motrin] 600 mg PO Q8HR PRN #30 tab 01/31/19 Rx Allergies Allergy/AdvReac Type Severity Reaction Status Date / Time No Known Allergies Allergy Verified 04/19/23 21:12 Surgical - Exam - General moderate distress - Eyes normal ocular movement - ENT no hearing loss - Neck trachea midline - Respiratory normal respiratory effort - Cardiovascular Heart Sounds: normal: S1, S2 - Abdomen Abdomen: soft, non tender, no guarding, no rigid, no rebound - Integumentary normal turgor - Neurologic no disoriented, no combative - Musculoskeletal normal gait - Psychiatric oriented to time, oriented to person, oriented to place, speech is normal, memory intact Breast Exam: BRA: 36DD Inspection: Bilateral grade 2 ptosis Palpation: Right breast: Multi positional exam fibrocystic changes no dominant masses or nodules of concern Right axilla: No adenopathy of concern Left breast: Multi positional exam fibrocystic changes, at the 4 o'clock position in the periareolar region there is approximately a 2 x 3 cm area of firmness which corresponds to that which is seen on ultrasound Left axilla: No adenopathy of concern Results Mammogram and ultrasound personally reviewed with Dr. Dimas, area of palpable abnormality is evident on ultrasound in the left breast at 4:00 periareolar region, no lesions of concern noted in the right breast, there is a second area for which she is some concerns in the left breast and is recommended an MRI be performed Assessment and Plan Assessment: Impression: Abnormal left breast ultrasound/palpable lesion left breast Plan: Ultrasound-guided core biopsy left breast lesion Bilateral breast MRI Follow-up after ultrasound-guided core biopsy I discussed with the patient that I will be gone until April 07. She understands this and her appointment will be soon as I get back. CC: Dr. Davis CC: Dr. Castillo
[2024-03-20 11:39] VITALS: BP 146/79; PULSE 100; RESP 17; TEMP 98.1
== END ==
LOC: WWCWWP 09:05
PROVIDERS: ATTEND Surgery
DX: R92.8 Other abnormal and inconclusive findings on diagnostic imaging of breast (principal); N63.20 Unspecified lump in the left breast, unspecified quadrant; Z80.3 Family history of malignant neoplasm of breast

== ENCOUNTER → 2024-03-20 | Outpatient (CLI) | payer BC ==
--- NOTE | 2024-03-20 08:56 | USB ---
Reason for Exam: Clinical finding. Patient History: Menarche at age 14. First Full-Term at age 29. 2012, Benign Excisional Biopsy on the left side. Maternal grandmother had breast cancer, age 70. Risk Values: Velia 5 year model risk: 1.2%. NCI Lifetime model risk: 13.2%. Technique: Method: Targeted. Prior Study Comparison: 05/17/2021 Bilateral Screening Mammogram, [facility]. 05/31/2022 Bilateral MG 3D screening mammo w/cad, [facility]. 06/02/2022 Left MG 3D work up w/cad , [facility]. Findings: The area of palpable concern of the left breast, the medial section of the breast of the left breast, the axilla of the left breast and the retroareolar of the left breast were scanned. There is a lobular hypoechoic 1.9 x 1.6 x 1.0 cm area at the palpable abnormality 5:00 position 2 cm in the nipple. Ultrasound-guided core biopsy is recommended. At the 9:00 position no discrete cyst or solid lesion is identified to correlate with the mammographic finding.. Overall Assessment: Highly suggestive of malignancy, BI-RAD 5 Management: Ultrasound Core Biopsy of the left breast. Surgical Consultation of the left breast. A clinical breast exam by your physician is recommended on an annual basis and results should be correlated with mammographic findings. This exam should not preclude additional follow-up of suspicious palpable abnormalities. Results were given to the patient verbally at the time of exam. Electronically signed and approved by: Michael Dimas D.O. Radiologis
--- NOTE | 2024-03-20 15:54 | MM ---
Reason for Exam: Clinical finding. Last mammogram was performed 1 year(s) and 9 month(s) ago. Patient History: Menarche at age 14. First Full-Term at age 29. 2011, Benign Excisional Biopsy on the left side. Maternal grandmother had breast cancer, age 70. Last menstrual period: 03/04/2024 Risk Values: Velia 5 year model risk: 1.2%. NCI Lifetime model risk: 13.2%. Tissue Density: The breasts are extremely dense, which lowers the sensitivity of mammography. Findings: Analyzed By CAD. The pattern is symmetrical. There is a focal asymmetry appears more prominent along the medial aspect left breast. Marker indicates the palpable region upper outer aspect left anterior mid breast. No underlying mammographic abnormality is evident. Ultrasound is recommended for additional evaluation. Right breast:No suspicious groups of microcalcifications, spiculated or lobular masses, architectural distortion or other secondary signs of malignancy are mammographically apparent. Overall Assessment: Incomplete: need additional imaging evaluation, BI-RAD 0 Management: Diagnostic Breast Ultrasound of the left breast. A negative mammogram report should not preclude additional follow up of suspicious palpable abnormalities. Patient should continue monthly self breast exam. A clinical breast exam by your physician is recommended on an annual basis and results should be correlated with mammographic findings. Note on Velia scores and lifetime risk: 1. A Velia score greater than 3% is considered moderate risk. If this is the case, consider specialist referral to assess eligibility for a risk reducing agent. 2. If overall lifetime risk for the development of breast cancer is 20% or higher, the patient may qualify for future screening with alternating mammogram and breast MRI. Electronically signed and approved by: Michael Dimas D.O. Radiologis
== END | disposition home or self-care (01) ==
LOC: RADMAMWWP 07:46
PROVIDERS: ATTEND Family Medicine
DX: R92.343 Mammographic extreme density, bilateral breasts (principal); N63.20 Unspecified lump in the left breast, unspecified quadrant; Z80.3 Family history of malignant neoplasm of breast
CPT/HCPCS: 77062; 77066

== ENCOUNTER → 2024-03-27 | Day surgery (SDC) | payer BC ==
--- NOTE | 2024-04-01 13:42 | MM ---
Reason for Exam: Post Procedure Mammogram. Last screening mammogram was performed less than 1 month ago. Patient History: Menarche at age 14. First Full-Term at age 29. 2011, Benign Excisional Biopsy on the left side. Maternal grandmother had breast cancer, age 70. Risk Values: Velia 5 year model risk: 1.2%. NCI Lifetime model risk: 13.2%. Prior Study Comparison: 05/31/2022 Bilateral MG 3D screening mammo w/cad, [facility]. 06/02/2022 Left MG 3D work up w/cad LT, [facility]. 03/20/2024 Bilateral MG 3D diag mammo w/cad JIMBO, [facility]. Tissue Density: Left: The breasts are extremely dense, which lowers the sensitivity of mammography. Pathology Description: Location: 5 o'clock. Marker Left Behind. Needle Type: Mammotome Cores: 6 Skin Nicks: 1 Gauge: 13 The procedure of ultrasound guided core biopsy was explained to the patient. Benefits, alternatives, and risks were discussed. An informed consent was then obtained. A timeout was performed. The patient was placed in supine positioning for imaging and for the procedure. The overlying skin was prepped and draped in usual sterile fashion. Lidocaine was used as anesthetic into the skin and subcutaneous tissue up to area of concern in the left breast. A small hematoma appear to be adjacent to the targeted biopsy site following anesthesia. The procedure was temporarily halted while pressure was held. Following this, a small skin jane was made with surgical scalpel. No additional hemorrhage was identified and the biopsy was performed without additional bleeding observed. Under ultrasound guidance, a 12-gauge vacuum assisted biopsy gun device was used to obtain 6 core samples. A biopsy clip was left in lesion. Hydromark butterfly core marker was placed. The patient tolerated the procedure well without any immediate complication. Upon completion of the examination, patient exhibited a vasovagal reaction which was treated conservatively with spontaneous resolution. Blood pressure was stable at 116/78. The patient was stable was transferred for postprocedure mammogram. The patient was kept in the radiology department for short stay after the procedure and then discharged home in stable condition. Postprocedure mammogram: The patient was transferred to mammography for physician ordered post procedure mammogram for clip placement verification. Clip is within the anterior left breast. Impression: Successful ultrasound guided core biopsy of area of concern in the left breast, full pathology results to follow. Recommendations: 1. Recommendations are pending pathology results. Pathology Results: Result: Benign, Fibroadenoma. LEFT BREAST, FIVE O'CLOCK, ULTRASOUND GUIDED NEEDLE CORE BIOPSY: Fibroadenoma. Overall Assessment: Benign Assessment: MG diagnostic mammo LT wo CAD. - Left: Benign, BI-RAD 2. Management: Diagnostic Breast Ultrasound of the left breast in 6 months. Electronically signed and approved by: Michael Dimas D.O. Radiologis
== END ==
LOC: RADUSWWP 09:52
PROVIDERS: ATTEND Surgery
DX: D24.2 Benign neoplasm of left breast (principal); R92.8 Other abnormal and inconclusive findings on diagnostic imaging of breast
CPT/HCPCS: 88305; 77065; 19083; A4648

== ENCOUNTER → 2024-04-03 | Outpatient (CLI) | payer BC ==
--- NOTE | 2024-04-04 13:42 | BMR ---
EXAM DATE: 04/03/2024 EXAM DESCRIPTION: MRI-Breast Bilat (W/WO Contrast) INDICATION: Abnormal mammogram with previous biopsy of left fibroadenoma at 5 o'clock. Dense breast. Grandmother with history of breast cancer. COMPARISON: PRIOR MRIs: None available. Correlation to mammograms: Prior studies dating back to 05/31/2022. Correlation to ultrasound: 03/27/2024 and 03/20/2024. CONTRAST: 6.5 cc Gadavist IV gadolinium contrast TECHNIQUE: Multiplanar multisequence MR imaging of both breasts was performed with a dedicated breast coil. Images were obtained before and after administration of IV gadolinium, using the standard breast mass protocol. Computer aided detection was utilized for interpretation. FINDINGS: LMP: Not provided General breast composition: The breast tissue is extremely dense Background parenchymal enhancement: Marked RIGHT BREAST: The T2 weighted series shows few scattered small cysts.. Review of the dynamic series shows no early or abnormal enhancement. LEFT BREAST: In the lower outer quadrant left breast at approximately 5 o'clock, there is a lobulated recently biopsied fibroadenoma estimating 2.2 cm. Additional oval homogeneous lead enhancing mass with T2 hyperintensity at 9 o'clock, approximately 6-7 cm from the nipple. Persistent enhancement kinetics. No additional suspicious enhancement beyond marked background enhancement. LYMPH NODES: There is no evidence of internal mammary or axillary adenopathy. IMPRESSION: RIGHT BREAST: No MR evidence of malignancy. LEFT BREAST: 1. 0.7 cm mass at 9 o'clock, 6-7 cm from the nipple likely represents a fibroadenoma. Targeted ultrasound and possible biopsy recommended. 2. Recently biopsied fibroadenoma at 5 o'clock. OVERALL ASSESSMENT--BI-RADS 0-indeterminate. ANNUAL SCREENING BREAST MRI IN ADDITION TO MAMMOGRAPHY IS RECOMMENDED IN PATIENTS WITH LIFETIME RISK OF BREAST CANCER >20% MTDD
== END | disposition home or self-care (01) ==
LOC: RADMRIMAIN 17:24
PROVIDERS: ATTEND Surgery
DX: R92.8 Other abnormal and inconclusive findings on diagnostic imaging of breast (principal); D24.1 Benign neoplasm of right breast; D24.2 Benign neoplasm of left breast
CPT/HCPCS: 77049; A9585

== ENCOUNTER → 2024-04-11 | Outpatient (CLI) | payer BC ==
--- NOTE | 2024-04-11 13:32 | USB ---
Reason for Exam: Follow-up at short interval from prior study. Patient History: Menarche at age 14. First Full-Term at age 29. 03/27/2024, Benign US biopsy breast VAD LT on the left side. 2011, Benign Excisional Biopsy on the left side. Maternal grandmother had breast cancer, age 70. Risk Values: Velia 5 year model risk: 2.0%. NCI Lifetime model risk: 17.2%. Technique: Method: Targeted. Prior Study Comparison: 06/02/2022 Left MG 3D work up w/cad LT, [facility]. 03/20/2024 Bilateral MG 3D diag mammo w/cad JIMBO, [facility]. 03/27/2024 Left MG diagnostic mammo LT wo CAD., [facility]. Findings: The upper inner quadrant of the left breast was scanned. Electronically signed and approved by: Eren Baker M.D. Radiologis
== END | disposition home or self-care (01) ==
LOC: RADUSWWP 12:59
PROVIDERS: ATTEND Surgery
DX: Z12.31 Encounter for screening mammogram for malignant neoplasm of breast (principal); N63.0 Unspecified lump in unspecified breast

== ENCOUNTER → 2024-04-11 | Outpatient (CLI) | payer BC ==
--- NOTE | 2024-04-11 12:48 | P.PN ---
Subjective Progress Note Date: 04/11/24 Principal diagnosis: fibroadenoma left breast 03/20/24 Reason for Consult: mass left breast Requesting physician: Shanda Davis History of present illness: Armin is a 43 year old female with an abnormal left breast mammogram. She is complaining of a lump in her left breast for about 1 week. Her last mammogram was in 05-31-22 feet diagnostic left breast mammogram in 06-02-2022. This was felt to be BI-RADS 2 and follow-up in 1 year was recommended. Not complaining of any nipple discharge or skin changes. She had a left breast biopsy in 2010 which was benign. Not complaining of any recent trauma or infection of the breast. ultrasound core biopsy of the lesion at 5 oclock left breast: fibroadenoma 03-27-24 MRI 04-03-24 abnormal left breast MRI at 5 and at 9 recommnd ultrasound to look at 9 olcock area, if not seen felt to be seen on mammogram for stero biopsy reviewed and discussed with radiology Dr. Davidson She tolerated the procedure without difficulty. Caffeine: 2 cups/day nicotine: none chocolate: none BCP: about 2 years hormones: one time hormones replacement via Dr. Davis, several years ago Hormone History: menarche: 13 , breast fed no, age at first : 30 periods regular, 2 weeks prior not feel well, last about 3 days LMP: 3 weeks ago Family History: maternal grandmother: breast cancer maternal grandfather: lungs smoker Surgical History: appy gallbladder left breast biopsy tonsil Medical History: Patient has had COVID twice, she did not take the COVID-vaccine Social History: Nicotine: None alcohol: Occasional Drugs: Negative Review of Systems - EENT Eyes: denies blurred vision Ears: deny: decreased hearing, tinnitus Ears, nose, mouth and throat: Denies dysphagia - Breasts bilateral: as per HPI - Cardiovascular Denies chest pain, Denies shortness of breath - Respiratory Denies cough - Gastrointestinal Reports as per HPI - Genitourinary Genitourinary: Reports as per HPI Menstruation: Reports period normal - Musculoskeletal Reports as per HPI - Integumentary Reports as per HPI - Neurological Reports as per HPI - Psychiatric Reports anxiety - Endocrine Reports as per HPI - Hematologic/Lymphatic Reports as per HPI - Allergic/Immunologic Reports seasonal allergies Past Medical History Past Medical History: No Reported History Additional Past Medical History / Comment(s): RIGHT INGUINAL HERNIA History of Any Multi-Drug Resistant Organisms: None Reported Past Surgical History: Appendectomy, Cholecystectomy, Tonsillectomy Past Anesthesia/Blood Transfusion Reactions: Postoperative Nausea & Vomiting (PONV) Past Psychological History: Anxiety Smoking Status: Never smoker Past Alcohol Use History: Occasional Past Drug Use History: None Reported - Past Family History Mother Family Medical History: No Reported History Medications and Allergies Home Medications Medication Instructions Recorded Confirmed Type ALPRAZolam [Xanax] 0.25 mg PO BID PRN 01/25/19 01/31/19 History Desvenlafaxine Succinate [Pristiq] 100 mg PO QAM 01/25/19 01/31/19 History HYDROcodone/APAP 5-325MG [Milton 1 tab PO Q6HR PRN 3 Days #5 tab 01/31/19 Rx 5-325] Ibuprofen [Motrin] 600 mg PO Q8HR PRN #30 tab 01/31/19 Rx Allergies Allergy/AdvReac Type Severity Reaction Status Date / Time No Known Allergies Allergy Verified 04/19/23 21:12 Surgical - Exam - General moderate distress - Eyes normal ocular movement - ENT no hearing loss - Neck trachea midline - Respiratory normal respiratory effort - Cardiovascular Heart Sounds: normal: S1, S2 - Abdomen Abdomen: soft, non tender, no guarding, no rigid, no rebound - Integumentary normal turgor - Neurologic no disoriented, no combative - Musculoskeletal normal gait - Psychiatric oriented to time, oriented to person, oriented to place, speech is normal, memory intact Breast Exam: BRA: 36DD Inspection: Bilateral grade 2 ptosis Palpation: Right breast: Multi positional exam fibrocystic changes no dominant masses or nodules of concern Right axilla: No adenopathy of concern Left breast: Multi positional exam fibrocystic changes, at the 4 o'clock position in the periareolar region there is approximately a 2 x 3 cm area of firmness which corresponds to that which is seen on ultrasound Left axilla: No adenopathy of concern Results Mammogram and ultrasound personally reviewed with Dr. Dimas, area of palpable abnormality is evident on ultrasound in the left breast at 4:00 periareolar region, no lesions of concern noted in the right breast, there is a second area for which she is some concerns in the left breast and is recommended an MRI be performed Assessment and Plan Assessment: Impression: Abnormal left breast ultrasound/palpable lesion left breast Plan: Ultrasound-guided core biopsy left breast lesion Bilateral breast MRI Follow-up after ultrasound-guided core biopsy I discussed with the patient that I will be gone until April 07. She understands this and her appointment will be soon as I get back. CC: Dr. Davis CC: Dr. Castillo Additional CC's: Shanda Castillo Objective - Constitutional General appearance: Present: cooperative - EENT Eyes: Present: EOMI ENT: Present: hearing grossly normal - Neck Neck: Present: normal ROM - Respiratory Respiratory: bilateral: CTA - Cardiovascular Heart sounds: normal: S1, S2 - Integumentary Integumentary: Present: normal turgor - Musculoskeletal Musculoskeletal: Present: gait normal - Psychiatric Psychiatric: Present: A&O x's 3, appropriate affect, intact judgment & insight - Additional findings Additional findings: Breast Exam: BRA: 36DD Inspection: Bilateral grade 2 ptosis Palpation: Right breast: Multi positional exam fibrocystic changes no dominant masses or nodules of concern Right axilla: No adenopathy of concern Left breast: Multi positional exam fibrocystic changes, at the 4 o'clock position in the periareolar region there is approximately a 2 x 3 cm area of firmness which corresponds to that which is seen on ultrasound; biopsy site is clean and dry with no evidence of infection or hematoma Left axilla: No adenopathy of concern Assessment and Plan Assessment: Impression: Palpable mass left breast at o'clock corresponding to radiographic abnormality biopsy-proven fibroadenoma, additional lesion noted on MRI at 9:00 for which ultrasound guided evaluation is recommended Plan: Ultrasound-guided evaluation of lesion at 9:00 in the left breast Ultrasound-guided core biopsy if lesion can be seen at the site if not it is believed that the area can be seen on mammogram and stereotactic core biopsy to be recommended Would recommend needle localization and excision of these areas following biopsy secondary to the fact that the lesion in the left breast at 5:00 is palpable and somewhat suspicious on radiographic evaluation CC: Dr. Castillo
[2024-04-11 13:07] VITALS: BP 113/70; PULSE 96; RESP 16; TEMP 98.3
== END ==
LOC: WWCWWP 11:28
PROVIDERS: ATTEND Surgery
DX: R92.8 Other abnormal and inconclusive findings on diagnostic imaging of breast (principal); D24.2 Benign neoplasm of left breast; N63.10 Unspecified lump in the right breast, unspecified quadrant; Z80.3 Family history of malignant neoplasm of breast

== ENCOUNTER → 2024-04-25 | Day surgery (SDC) | payer BC ==
[~2024-04-25] MED LIST changes: +ALPRAZolam 0.25 MG TAB PO PRN; +ALPRAZolam 0.5 MG TAB PO PRN; -DEXAMETHASONE SOD PHOSPHATE 10 MG/ML 1 ML VIAL IV ONE; -HEPARIN SODIUM,PORCINE 5,000 UNIT/ML 1 ML VIAL SQ ONE; -HYDROmorphone 0.5 MG/0.5 ML SYRINGE IVP PRN; -LACTATED RINGERS 1,000 ML IV SCH; -LIDOCAINE 1% 20 ML VIAL (10MG/ML) FOR IV START INTRADERMA PRN; -MIDAZOLAM 2 MG/2 ML VIAL IV PRN; -SCOPOLAMINE 1.5MG/72HR PATCH TRANSDERM ONE; -ceFAZolin IN SWFI 2 GM/20 ML SYRINGE IVP ONE
--- NOTE | 2024-04-25 08:22 | P.CON ---
Consult Note - . Consult date: 04/25/24 Assessment/Plan:: Armin is a 43-year-old female who underwent a MRI of the breast on 04-03-2024. The MRI revealed an abnormal lesion at 5 and at 9:00. Ultrasound was performed to look at the 9:00 area and nothing could be clearly identified. The 5:00 area underwent a core biopsy was consistent with a fibroadenoma. The patient initially on radiograph was felt to have a mammographic abnormality at 9:00 for which stereo core biopsy could be performed. However when she comes today for stereo core biopsy repeat review with Dr. Davidson does not reveal any area of concern. Therefore an MRI guided core biopsy of the area has been recommended. I have discussed this with the patient and her . They are in agreement and this will be scheduled. Patient will follow up in one month. Will plan on resection of palpable lesion at that time, to determine if two sites need to be resected.
== END ==
LOC: RADMAMWWP 07:31
PROVIDERS: ATTEND Surgery
DX: Z53.8 Procedure and treatment not carried out for other reasons (principal); D24.2 Benign neoplasm of left breast; R92.8 Other abnormal and inconclusive findings on diagnostic imaging of breast